=== PATIENT | male | born 1995 | race Two or more races ===

== ENCOUNTER 2019-10-22 05:41 | Emergency (ER) | payer OTHER ==
[~2019-10-22] VITALS: Ht 182.9 cm; Wt 95.3 kg
[2019-10-22 05:43] VITALS: Ht 182.9 cm; Wt 95.3 kg
[2019-10-22 08:01] VITALS: BP 152/98
== END 2019-10-22 08:01 | disposition home or self-care (01) ==
LOC: ED 05:41
DX: S91.311A Laceration without foreign body, right foot, initial encounter (principal); W20.8XXA Other cause of strike by thrown, projected or falling object, initial encounter; Y93.89 Activity, other specified; Y92.89 Other specified places as the place of occurrence of the external cause; Y99.8 Other external cause status
CPT/HCPCS: Q0092